=== PATIENT | male | born 1995 | race Caucasian/White ===

== ENCOUNTER 2017-06-05 22:47 | Emergency (ER) | payer SELFPAY ==
[~2017-06-05] VITALS: Ht 182.9 cm; Wt 99.2 kg
[~2017-06-05 22:47] MED LIST: ADDERALL20 MG PO; AMOXICILLIN875 MG PO; MOTRIN600 MG PO; NORCO 5/3251 TABLET PO; ULTRAM50 MG PO
[2017-06-05] MEDS ORDERED: PEN-VEE K,VEET500 MG PO (23:26)
[2017-06-05] MEDS ORDERED: INDOCIN50 MG PO (23:26)
[2017-06-05] MEDS ORDERED: LIDOCAINE20 MG/1 M5 PO (23:26)
[2017-06-06 00:18] VITALS: BP 144/107
== END 2017-06-06 00:26 | disposition home or self-care (01) ==
LOC: EME 22:47
DX: K02.9 Dental caries, unspecified (principal); K08.89 Other specified disorders of teeth and supporting structures; F17.200 Nicotine dependence, unspecified, uncomplicated
CPT/HCPCS: 99281; 99283

== ENCOUNTER 2017-12-16 16:23 | Emergency (ER) | payer SELFPAY ==
[~2017-12-16] VITALS: Ht 182.9 cm; Wt 101.6 kg
[~2017-12-16 16:23] MED LIST changes: +AMOXICILLIN500 MG PO; +INDOCIN50 MG PO; +LIDOCAINE20 MG/1 M5 PO; +PEN-VEE K,VEET500 MG PO
[2017-12-16] MEDS ORDERED: INDOCIN50 MG PO (17:07)
[2017-12-16] MEDS ORDERED: AUGMENTIN875 MG PO (17:07)
[2017-12-16 17:39] VITALS: BP 00/0
== END 2017-12-16 18:00 | disposition home or self-care (01) ==
LOC: EME 16:23
DX: K04.7 Periapical abscess without sinus (principal); F17.200 Nicotine dependence, unspecified, uncomplicated; Z86.19 Personal history of other infectious and parasitic diseases
CPT/HCPCS: 99281; 99283; J1885